=== PATIENT | female | born 1970 | race Caucasian/White ===

== ENCOUNTER 2020-01-08 11:51 | Inpatient (IN) ==
[2020-01-08 12:47] LABS: Urine Benzodiazepine Screen Presumptive Positive (None Detect); Urine Cannabinoids Screen Presumptive Positive (None Detect); Urine Opiates Screen None Detected (None Detect)
[2020-01-08] MEDS ORDERED: Al Hydrox/Mg Hydrox/Simet LIQ 30 ML UDC PO PRN (23:54)
[2020-01-09] MEDS: Vitamin THERAPEUTIC TAB PO SCH (13:21)
[2020-01-10 07:48] LABS: HDL Cholesterol 45.1 mg/dL
[2020-01-10] MEDS: Vitamin THERAPEUTIC TAB PO SCH (08:08)
[2020-01-10] MEDS: Nicotine PATCH 14 MG/24 HR PATCH TRANSDERM SCH (14:12)
[2020-01-11] MEDS: Vitamin THERAPEUTIC TAB PO SCH (08:22)
[2020-01-11] MEDS: Nicotine PATCH 14 MG/24 HR PATCH TRANSDERM SCH (08:22)
[2020-01-12] MEDS: Nicotine PATCH 14 MG/24 HR PATCH TRANSDERM SCH (08:16)
[2020-01-12] MEDS: Vitamin THERAPEUTIC TAB PO SCH (08:17)
[2020-01-13] MEDS: Nicotine PATCH 14 MG/24 HR PATCH TRANSDERM SCH (08:46)
[2020-01-13] MEDS: Vitamin THERAPEUTIC TAB PO SCH (08:46)
[2020-01-14] MEDS: Nicotine PATCH 14 MG/24 HR PATCH TRANSDERM SCH (08:13)
[2020-01-14] MEDS: Vitamin THERAPEUTIC TAB PO SCH (10:00)
[2020-01-15] MEDS: Nicotine PATCH 14 MG/24 HR PATCH TRANSDERM SCH (07:29)
[2020-01-15] MEDS: Vitamin THERAPEUTIC TAB PO SCH (08:31)
[2020-01-16] MEDS: Nicotine PATCH 14 MG/24 HR PATCH TRANSDERM SCH (07:30)
[2020-01-16] MEDS: Vitamin THERAPEUTIC TAB PO SCH (07:31)
[2020-01-16 08:05] VITALS: BP 111/71
== END 2020-01-16 12:00 | disposition home or self-care (01) | DRG 753 ==
LOC: ED 11:51 → BSU 21:50
PROVIDERS: ADMIT Psychiatry & Neurology Psychiatry; ATTEND Psychiatry & Neurology Psychiatry